=== PATIENT | male | born 1960 | race Caucasian/White ===

== ENCOUNTER 2017-10-19 04:19 | Emergency (ER) | payer MEDICARE, MEDICAID ==
[~2017-10-19] VITALS: Ht 190.5 cm; Wt 66.0 kg
[~2017-10-19 04:19] MED LIST: ASPI-516 CHEW; DOXE100C4 PO; HALO5TAB PO; HYDR50CA PO; MELO7.5T27 PO; OLAN20TA PO; OXCA300T PO
[2017-10-19 04:23] VITALS: BP 123/91; PULSE 82; RESP 20; TEMP 97.9; O2SAT 92
[2017-10-19] MEDS ORDERED: OLAN15TA PO (04:31)
--- NOTE | 2017-10-19 04:34 | PD ---
HPI Chief Complaint: Abdominal Pain Time Seen by Provider: 04:23 Travel History International Travel<30 days: No Contact w/Intl Traveler<30days: No Traveled to known affect area: No History of Present Illness HPI This is a 56-year-old male who presents to the emergency department with severe abdominal pain that started 2 days ago, constant, radiating to the back having been unable to urinate in 12 hours and having been unable to pass a bowel movement. He has never had something like this happen to him before. PFSH Past Medical History Bipolar Disorder: Yes Anxiety: Yes Depression: Yes Heart Rhythm Problems: No Cardiac Catheterization: No Cardiovascular Problems: No High Cholesterol: No Congestive Heart Failure: No COPD: Yes (EMPHYSEMA) Diabetes: No Diminished Hearing: No Genitourinary: No Hypertension: No Immune Disorder: No Insomnia: Yes Musculoskeletal: Yes Neurologic: No Psychiatric: Yes Myocardial Infarction: No Schizophrenia: Yes Tetanus Vaccination: < 5 Years Influenza Vaccination: No Past Surgical History Coronary Artery Bypass Graft: No Neurologic Surgery: Yes (INTERIOR CERVICAL FUSION, ANOTHER TYPE OF BACK SURGERY UNSURE OF NAME) Other Surgery: Yes Social History Alcohol Use: Yes (rarely) Tobacco Use: Yes (1 PPD) Substance Use: No Allergies-Medications (Allergen,Severity, Reaction): Coded Allergies: No Known Allergies (Verified Adverse Reaction, Unknown, 10/19/17) Reported Meds & Prescriptions Reported Meds & Active Scripts Active Meloxicam 7.5 Mg Tab 7.5 Mg PO BID Reported Olanzapine 15 Mg Tab 15 Mg PO DAILY Aspirin 81 Mg Chew 81 Mg CHEW DAILY Oxcarbazepine 300 Mg Tab 300 Mg PO BID Hydroxyzine Pamoate 50 Mg Cap 50 Mg PO Q8HR PRN Review of Systems Except as stated in HPI: all other systems reviewed are Neg Physical Exam Narrative GENERAL: Uncomfortable appearing, cachectic SKIN: Focused skin assessment warm and dry. HEAD: Atraumatic. Normocephalic. EYES: Pupils equal and round. No injection or drainage. ENT: Moist mucous membranes NECK: Trachea midline. CARDIOVASCULAR: Regular rate and rhythm. No murmur appreciated. RESPIRATORY: Clear to auscultation. Breath sounds equal bilaterally. GASTROINTESTINAL: Abdomen soft, tender to palpation diffusely with a distended bladder. MUSCULOSKELETAL: No obvious deformities. NEUROLOGICAL: Awake and alert. No obvious cranial nerve deficits. Moving all extremities. PSYCHIATRIC: Appropriate mood and affect; insight and judgment normal. Data Data Last Documented VS Vital Signs Date Time Temp Pulse Resp B/P (MAP) Pulse Ox O2 Delivery O2 Flow Rate FiO2 10/19/17 06:18 81 18 133/78 (96) 98 Room Air 10/19/17 04:23 97.9 Orders Orders Complete Blood Count With Diff (10/19/17 04:23) Comprehensive Metabolic Panel (10/19/17 04:23) ^ Insert Iv (10/19/17 04:23) Urinary Catheter Insert/Apply (10/19/17 04:23) Urinalysis - C+S If Indicated (10/19/17 05:16) Ct Abd/Pel W Iv Contrast(Rout) (10/19/17 ) Iohexol 350 Inj (Omnipaque 350 Inj) (10/19/17 05:33) Labs Laboratory Tests Test 10/19/17 04:34 10/19/17 05:20 White Blood Count 12.1 TH/MM3 Red Blood Count 4.49 MIL/MM3 Hemoglobin 13.4 GM/DL Hematocrit 39.9 % Mean Corpuscular Volume 89.0 FL Mean Corpuscular Hemoglobin 29.9 PG Mean Corpuscular Hemoglobin Concent 33.6 % Red Cell Distribution Width 13.1 % Platelet Count 258 TH/MM3 Mean Platelet Volume 7.3 FL Neutrophils (%) (Auto) 78.7 % Lymphocytes (%) (Auto) 16.3 % Monocytes (%) (Auto) 3.8 % Eosinophils (%) (Auto) 0.6 % Basophils (%) (Auto) 0.6 % Neutrophils # (Auto) 9.5 TH/MM3 Lymphocytes # (Auto) 2.0 TH/MM3 Monocytes # (Auto) 0.5 TH/MM3 Eosinophils # (Auto) 0.1 TH/MM3 Basophils # (Auto) 0.1 TH/MM3 CBC Comment DIFF FINAL Differential Comment Blood Urea Nitrogen 18 MG/DL Creatinine 1.14 MG/DL Random Glucose 162 MG/DL Total Protein 7.0 GM/DL Albumin 3.7 GM/DL Calcium Level 8.5 MG/DL Alkaline Phosphatase 87 U/L Aspartate Amino Transf (AST/SGOT) 22 U/L Alanine Aminotransferase (ALT/SGPT) 26 U/L Total Bilirubin 0.2 MG/DL Sodium Level 141 MEQ/L Potassium Level 3.6 MEQ/L Chloride Level 109 MEQ/L Carbon Dioxide Level 19.8 MEQ/L Anion Gap 12 MEQ/L Estimat Glomerular Filtration Rate 66 ML/MIN Urine Color YELLOW Urine Turbidity CLEAR Urine pH 6.0 Urine Specific [place] 1.011 Urine Protein NEG mg/dL Urine Glucose (UA) NEG mg/dL Urine Ketones NEG mg/dL Urine Occult Blood SMALL Urine Nitrite NEG Urine Bilirubin NEG Urine Urobilinogen LESS THAN 2 mg/dL Urine Leukocyte Esterase NEG Urine RBC 5 /hpf Urine WBC LESS THAN 1 /hpf Urine Mucus FEW /lpf Microscopic Urinalysis Comment CATH-CULT NOT IND MDM Medical Decision Making Medical Screen Exam Complete: Yes Emergency Medical Condition: Yes Interpretation(s) Afebrile, no tachycardia, normotensive Mild leukocytosis Electrolytes are reassuring Urinalysis demonstrates some blood but no infection Last 24 hours Impressions Abdomen/Pelvis CT 10/19/17 0000 Signed Impressions: CONCLUSION: 1. Patchy infiltrate in the left lower lobe which could indicate pneumonia. 2. Nonspecific bowel gas pattern which may represent mild ileus and/or gastroe nteritis. There is a large amount of stool in the distal colon which could brandyn princess constipation. 3. Multiple small scattered low-density lesions in the liver. These represent simple cysts. Several are more indeterminant 4. A Mendoza catheter is present in the bladder with a small amount of urine and gas. 5. There is abnormal high density surrounding portions of the Mendoza catheter i n urethra and this could indicate possible hemorrhage. Differential Diagnosis Acute urinary retention, BPH, cauda equina syndrome, malignancy Narrative Course This is a 56-year-old male who presents to the emergency department and acute urinary retention. He was placed in a monitor and IV was established. Mendoza catheter was inserted and he put out 1.5 L of urine. He has a mild leukocytosis. CT is reassuring with no evidence of malignancy. He does have a possible pneumonia in the left lower lung but no symptoms consistent with this. He also has significant constipation on CT. I wanted to do a rectal exam to evaluate for tone and to evaluate for fecal impaction but the patient refused. I expressed to him my concerns for a neurologic etiology of his symptoms but he would prefer to follow-up with his primary care physician which I do not think is unreasonable as he has no weakness or other symptoms in his legs. Ultimately I think his symptoms are due to hydroxyzine and I advised that he discontinue it until he sees his outpatient doctor. Patient will be discharged with a Mendoza catheter and will follow up with urology. Diagnosis Primary Impression: Acute urinary retention Referrals: Vincenzo Villar MD Patient Instructions: General Instructions Additional Instructions: Stop taking hydroxyzine. If you develop weakness of your legs, difficulty walking, numbness of your legs or your genital or rectal area, loss of your bowel or bladder, or difficulty urinating return to the emergency department immediately. Followup with your primary care physician in one week if your symptoms have not improved. Med/Other Pt SpecificInfo: Med Stopped Disposition: 01 DISCHARGE HOME Condition: Stable Pam Clark MD Oct 19, 2017 04:34
[2017-10-19 04:48] LABS: AUTOMATED NEUTROPHIL # 9.5 TH/MM3 (1.8-7.7); BASOPHIL # 0.1 TH/MM3 (0-0.2); BASOPHIL % 0.6 % (0.0-2.0); EOSINOPHIL # 0.1 TH/MM3 (0-0.4); EOSINOPHIL % 0.6 % (0.0-4.0); HEMATOCRIT 39.9 % (39.0-51.0); HEMOGLOBIN 13.4 GM/DL (13.0-17.0); LYMPH % 16.3 % (9.0-44.0); MEAN CORPUSCULAR HEMOGLOBIN 29.9 PG (27.0-34.0); MEAN CORPUSCULAR HGB CONC 33.6 % (32.0-36.0); MEAN PLATELET VOLUME 7.3 FL (7.0-11.0); MONO % 3.8 % (0.0-8.0); MONOCYTE # 0.5 TH/MM3 (0-0.9); NEUT % 78.7 % (16.0-70.0); PLATELET COUNT 258 TH/MM3 (150-450); RED BLOOD COUNT 4.49 MIL/MM3 (4.50-5.90); RED CELL DISTRIBUTION WIDTH 13.1 % (11.6-17.2); WHITE BLOOD COUNT 12.1 TH/MM3 (4.0-11.0)
[2017-10-19 05:11] LABS: ALBUMIN 3.7 GM/DL (3.4-5.0); AST (GOT) 22 U/L (15-37); BICARBONATE 19.8 MEQ/L (21.0-32.0); BLOOD UREA NITROGEN 18 MG/DL (7-18); CALCIUM 8.5 MG/DL (8.5-10.1); CHLORIDE 109 MEQ/L (98-107); CREATININE 1.14 MG/DL (0.60-1.30); GLOMERULAR FILTRATION RATE 66 ML/MIN (>89); GLUCOSE,RANDOM 162 MG/DL (74-106); SODIUM (NA) 141 MEQ/L (136-145)
[2017-10-19 05:17] LABS: ALKALINE PHOSPHATASE 87 U/L (45-117); ALT (GPT) 26 U/L (12-78); TOTAL BILIRUBIN ADULT 0.2 MG/DL (0.2-1.0)
[2017-10-19] MEDS ORDERED: IOHEXOL 350 MG/ML 10 ML VIAL (for RAD DIAG) IVCONTRAST ONE (05:33)
[2017-10-19 05:51] LABS: BILIRUBIN, URINE NEG (NEG); BLOOD, URINE SMALL (NEG); GLUCOSE,URINE NEG (NEG); KETONE, URINE NEG (NEG); MUCUS URINE FEW /lpf (OCC); NITRITE,URINE NEG (NEG); URINE COLOR YELLOW (YELLW/STRAW); URINE LEUKOCYTE ESTERASE NEG (NEG)
--- NOTE | 2017-10-19 06:09 | RADRPT ---
EXAM DATE: 10/19/2017 5:38 AM EDT AGE/SEX: 56 years / Male INDICATIONS: Weight loss. Acute urinary retention. Cachexia. CLINICAL DATA: This is the patient's initial encounter. Patient reports that signs and symptoms have been present for 1 day and indicates a pain score of 4/10. MEDICAL/SURGICAL HISTORY: Chronic obstructive pulmonary disease. Fusion, cervical. Lumbar surge ry. ORAL CONTRAST: No oral contrast ingested. RADIATION DOSE: 6.64 CTDI (mGy) COMPARISON: No prior exams available for comparison. TECHNIQUE: Multiple contiguous axial images were obtained through the abdomen and pelvis following b olus infusion of 95 ml Omnipaque 350 (iohexol) nonionic water-soluble contrast as a single exam dos e. No oral contrast ingested. Using automated exposure control and adjustment of the mA and/or kV ac cording to patient size, radiation dose was kept as low as reasonably achievable to obtain optimal di agnostic quality images. DICOM format image data is available electronically for review and comparis on. FINDINGS: Lower Lungs: There is patchy infiltrate in the posterior left lower lobe. There is a small left pleur al effusion. Liver: The liver has a homogeneous density with multiple small scattered low density lesions liver. M any of these appear to represent cysts. Some are more indeterminant in appearance. There is no dilati on of the biliary tree. The gallbladder is unremarkable. Spleen: Homogeneous density without enlargement. Pancreas: Unremarkable without mass or calcification. Kidneys: Normal in size and shape. No evidence of mass or hydronephrosis. Adrenal Glands: Unremarkable. Aorta: The aorta and proximal iliac vessels are grossly unremarkable without aneurysmal dilation. Bowel/Mesentery: No oral contrast was given limiting the sensitivity of the exam. There is a large a mount of stool in the distal colon. There is mild gaseous distention portions of the colon with multi ple loops of nondilated air-containing small bowel. Abdominal Wall: Intact. Retroperitoneum: No evidence of adenopathy in the retrocrural, para-aortic, or deep pelvic regions. Bladder: A Mendoza catheter is present in the bladder with small amount of residual urine and gas. Reproductive Organs: The prostate gland is small in size with punctate calcifications. There is abno rmal high density surrounding portions of the Mendoza catheter in the urethra. Inguinal: The inguinal region is unremarkable without evidence of adenopathy. Bony Structures: Unremarkable. CONCLUSION: 1. Patchy infiltrate in the left lower lobe which could indicate pneumonia. 2. Nonspecific bowel gas pattern which may represent mild ileus and/or gastroenteritis. There is a l arge amount of stool in the distal colon which could indicate constipation. 3. Multiple small scattered low-density lesions in the liver. These represent simple cysts. Several are more indeterminant 4. A Mendoza catheter is present in the bladder with a small amount of urine and gas. 5. There is abnormal high density surrounding portions of the Mendoza catheter in urethra and this cou ld indicate possible hemorrhage. Electronically signed by: Dontae Bills MD 10/19/2017 6:07 AM EDT
[2017-10-19 06:18] VITALS: BP 133/78; PULSE 81; RESP 18; O2SAT 98
== END 2017-10-19 06:34 | disposition home or self-care (01) ==
LOC: NEPE 04:19
DX: R33.9 Retention of urine, unspecified (principal); K59.00 Constipation, unspecified; D72.829 Elevated white blood cell count, unspecified; F31.9 Bipolar disorder, unspecified; F41.8 Other specified anxiety disorders; F17.200 Nicotine dependence, unspecified, uncomplicated; Z87.09 Personal history of other diseases of the respiratory system; Z87.39 Personal history of other diseases of the musculoskeletal system and connective tissue
CPT/HCPCS: 51702; 74177; 80053; 81001; 85025; 99284; Q9967